=== PATIENT | female | born 1965 | race Caucasian/White ===

== ENCOUNTER 2024-02-12 13:19 | Emergency (ER) | payer MEDICARE, MEDICAID ==
[~2024-02-12] VITALS: Ht 162.6 cm; Wt 70.0 kg
[2024-02-12 13:23] VITALS: O2SAT 98
[2024-02-12] MEDS: GABAPENTIN 300MG CAPSULE PO ONE (14:35)
[2024-02-12] MEDS ORDERED: GABA-532 MT (14:57)
[2024-02-12] MEDS: PHENYTOIN SODIUM EXTENDED 100MG CAPSULE PO ONE (15:54)
[2024-02-12] MEDS: CLONAZEPAM 1MG TABLET PO ONE (16:02)
[2024-02-12 16:52] VITALS: BP 135/78; PULSE 80; RESP 18; TEMP 98.2
== END 2024-02-12 17:08 | disposition home or self-care (01) ==
LOC: ER 13:19
DX: F41.9 Anxiety disorder, unspecified (principal); G89.29 Other chronic pain; G62.9 Polyneuropathy, unspecified; Z76.0 Encounter for issue of repeat prescription; F20.9 Schizophrenia, unspecified
CPT/HCPCS: 99284

== ENCOUNTER 2024-08-07 12:12 | Emergency (ER) | payer MEDICARE, MEDICAID ==
[~2024-08-07] VITALS: Ht 160 cm; Wt 57.0 kg
[~2024-08-07 12:12] MED LIST: GABA-532 MT
[2024-08-07 12:28] VITALS: O2SAT 98
[2024-08-07 14:38] LABS: BASOPHILS % 0.6 % (0.0-2.0); EOSINOPHILS % 0.5 % (0.0-5.0); HEMATOCRIT. 39.2 % (36.0-48.0); HEMOGLOBIN. 13.4 g/dL (12.0-16.0); LYMPHOCYTES % 34.9 % (20.0-50.0); MEAN CORPUSCULAR HEMOGLOBIN 32.4 pg (28.0-32.0); MEAN CORPUSCULAR HGB CONC 34.3 g/dL (31.0-37.0); MEAN CORPUSCULAR VOLUME 94.5 fL (81.0-99.0); MEAN PLATELET VOLUME 6.7 fl (7.4-10.4); MONOCYTES % 5.7 % (2.0-8.0); NEUTROPHILS % 58.3 % (40.0-76.0); PLATELET 286 x1000/uL (130-400); RED BLOOD CELL COUNT 4.15 mill/uL (4.2-5.4); RED CELL DISTRIBUTION WIDTH 12.3 % (11.6-14.6); WHITE BLOOD COUNT 4.6 x1000/uL (4.5-11.0)
[2024-08-07 14:46] LABS: CHLORIDE 102 mEq/L (98-107); POTASSIUM 3.5 mEq/L (3.5-5.1); SODIUM 136 mEq/L (136-145)
[2024-08-07 14:47] LABS: CALCIUM 9.5 mg/dL (8.7-10.4); CARBON DIOXIDE 31 mEq/L (21-32)
[2024-08-07 14:52] LABS: CREATININE 0.6 mg/dL (0.6-1.0); GLUCOSE 101 mg/dL (70-105)
[2024-08-07 14:54] LABS: ALANINE AMINOTRANSFERASE 30 IU/L (10-49); ALBUMIN 4.4 g/dL (3.2-4.8); ASPARTATE AMINOTRANSFERASE 42 IU/L (<34); BILIRUBIN TOTAL 0.4 mg/dL (0.1-1.0)
[2024-08-07 14:55] LABS: PROTEIN TOTAL 7.3 g/dL (6.0-8.3)
[2024-08-07 15:17] LABS: UREA NITROGEN BLOOD < 5 mg/dL (9-23)
[2024-08-07 15:33] VITALS: BP 149/83; PULSE 78; RESP 16; TEMP 98.6
[2024-08-07] MEDS: IBUPROFEN 400MG TABLET PO ONE (15:33)
[2024-08-07] MEDS: ACETAMINOPHEN 325MG TABLET PO ONE (15:33)
== END 2024-08-07 15:58 | disposition home or self-care (01) ==
LOC: ER 12:12
DX: G89.29 Other chronic pain (principal); M79.605 Pain in left leg; M79.604 Pain in right leg; Z98.890 Other specified postprocedural states; Z86.59 Personal history of other mental and behavioral disorders
CPT/HCPCS: 36415; 80053; 85025; 93970; 99284